=== PATIENT | male | born 1960 | race African-American/Black ===

== ENCOUNTER 2023-05-23 17:29 | Inpatient (IN) | payer MEDICAID ==
[~2023-05-23] VITALS: Ht 185.4 cm; Wt 106.5 kg
[2023-05-23] MEDS ORDERED: ONDANSETRON 4MG 2ML VIAL IV ONE (18:00)
[2023-05-23] MEDS: MORPHINE 4 MG/ML 1ML VIAL IV PRN ×2 (18:20→19:19)
[2023-05-23] MEDS ORDERED: ISOVUE-370 76% 100ML VIAL As Ordered ONE (18:21)
[2023-05-23 18:23] LABS: BASO % 0.2 % (0.0-1.0); EOS % 0.2 % (0.0-3.0); HEMATOCRIT 34.2 % (42.0-52.0); HEMOGLOBIN 11.8 g/dl (13.5-17.5); MEAN CORPUSCULAR HEMOGLOBIN 32.3 pg (27.0-33.0); MEAN CORPUSCULAR HGB CONC 34.5 g/dl (32.0-36.5); MEAN CORPUSCULAR VOLUME 93.7 fl (80.0-96.0); MONO # 0.6 10^3/uL (0.0-0.8); MONO % 10.1 % (2.0-8.0); NEUTROPHILS # 4.2 10^3/uL (1.5-8.5); PLATELET COUNT, AUTOMATED 240 10^3/uL (150-450); RED BLOOD COUNT 3.65 10^6/uL (4.30-6.10); WHITE BLOOD COUNT 5.9 10^3/uL (4.0-10.0)
[2023-05-23 18:30] LABS: CK-MB VALUE MASS 1.9 NG/ML (<3.6)
[2023-05-23 18:31] LABS: LIPASE 27 U/L (12-53)
[2023-05-23 18:32] LABS: CPK CREATINE PHOSPHOKINASE 350 U/L (46-171); MB/CK RELATIVE INDEX 0.54 (< OR =4)
[2023-05-23 18:33] LABS: ALBUMIN 3.6 G/DL (3.2-5.2); ALKALINE PHOSPHATASE 93 U/L (46-116); ALT/SGPT 33 U/L (7.0-40); AST/SGOT 79 U/L (<34); BILIRUBIN,DIRECT 0.6 MG/DL (<0.4); BILIRUBIN,TOTAL 1.5 MG/DL (0.3-1.2); BLOOD UREA NITROGEN 11 MG/DL (9-23); CALCIUM LEVEL 8.9 MG/DL (8.3-10.6); CARBON DIOXIDE LEVEL 21 MMOL/L (20-31); CHLORIDE LEVEL 103 MMOL/L (98-107); CREATININE FOR GFR 1.09 MG/DL (0.70-1.30); GLOMERULAR FILTRATION RATE > 60.0 (>49); GLUCOSE, FASTING 94 MG/DL (74-106); POTASSIUM SERUM 3.6 MMOL/L (3.5-5.1); SODIUM LEVEL 135 MMOL/L (136-145); TOTAL PROTEIN 8.1 G/DL (5.7-8.2)
[2023-05-23 18:35] LABS: THYROID STIMULATING HORMONE 0.938 uIU/ML (0.55-4.78)
[2023-05-23 18:52] LABS: INR 0.99; PROTHROMBIN TIME 13.3 SECONDS (12.5-14.5)
[2023-05-23 18:53] LABS: PARTIAL THROMBOPLASTIN TIME 26.5 SECONDS (24.8-34.2)
[2023-05-23 19:43] LABS: CK-MB VALUE MASS < 1.0 NG/ML (<3.6)
[2023-05-23 19:46] LABS: CPK CREATINE PHOSPHOKINASE 300 U/L (46-171); MB/CK RELATIVE INDEX 0.33 (< OR =4)
[2023-05-23 20:12] LABS: RSV AMPLIFICATION NEGATIVE (NEGATIVE)
[2023-05-23] MEDS ORDERED: PIPERACILLIN/TAZOBACTAM SOD 3.375 GM in D5W MINI-BAG PLUS 50 ML IV ONE (20:20)
[2023-05-23] MEDS ORDERED: MORPHINE 4 MG/ML 1ML VIAL IV PRN (20:25)
[2023-05-23 21:34] LABS: PROCALCITONIN 0.11 ng/ml
[2023-05-23] MEDS ORDERED: HOME MED LIST COMPLETE! XX SCH (22:10)
[2023-05-23] MEDS: HYDROmorphone HCL 2MG/ML 1ML VIAL IV PRN (22:20)
[2023-05-24] MEDS: LR 1,000 ML IV SCH ×3 (02:45→16:56)
[2023-05-24] MEDS: PIPERACILLIN/TAZOBACTAM SOD 3.375 GM in D5W MINI-BAG PLUS 50 ML IV SCH ×4 (04:18→20:23)
[2023-05-24 05:02] LABS: AMPHETAMINES LEVEL URINE NEGATIVE (NEGATIVE); BARBITURATES URINE NEGATIVE (NEGATIVE); BENZODIAZEPINES URINE NEGATIVE (NEGATIVE); COCAINE METABOLITE URINE NEGATIVE (NEGATIVE); METHADONE URINE NEGATIVE (NEGATIVE); PHENCYCLIDINE URINE NEGATIVE (NEGATIVE)
[2023-05-24 05:03] LABS: CANNABINOIDS URINE POSITIVE (NEGATIVE); OPIATES URINE POSITIVE (NEGATIVE)
[2023-05-24] MEDS: HYDROmorphone HCL 2MG/ML 1ML VIAL IV PRN ×2 (05:43→14:47)
[2023-05-24] MEDS: BIKTARVY (PATIENT'S OWN MED) PO SCH (09:00)
[2023-05-24 11:46] LABS: HEPATITIS B CORE ANTIBODY IGM NEGATIVE (NEGATIVE)
[2023-05-24 11:54] LABS: HEPATITIS C VIRUS ABY INDEX > 11.00 INDEX (<0.8)
[2023-05-24 13:38] VITALS: BP 146/83; TEMP 98.3; O2SAT 100
[2023-05-24] MEDS: HEPARIN SOD (PORCINE) 5000UNITS/ML 1ML VIAL/SYRINGE SQ SCH ×2 (14:46→21:33)
[2023-05-24 16:00] VITALS: BP 136/71; TEMP 98.8; O2SAT 97
[2023-05-24 20:30] VITALS: BP 131/69; TEMP 99.1; O2SAT 99
[2023-05-25] VITALS (9 sets, daily range): BP systolic 120–130; BP diastolic 62–74; TEMP 97.6–98.5; O2SAT 96–98
[2023-05-25] MEDS: HYDROmorphone HCL 2MG/ML 1ML VIAL IV PRN ×2 (02:40→13:09)
[2023-05-25] MEDS: PIPERACILLIN/TAZOBACTAM SOD 3.375 GM in D5W MINI-BAG PLUS 50 ML IV SCH ×2 (02:48→10:06)
[2023-05-25] MEDS: HEPARIN SOD (PORCINE) 5000UNITS/ML 1ML VIAL/SYRINGE SQ SCH ×3 (06:15→13:20)
[2023-05-25] MEDS: LR 1,000 ML IV SCH ×2 (06:15→10:45)
[2023-05-25 07:08] LABS: HEPATITIS A IgG TOTAL Positive (Negative)
[2023-05-25 07:13] LABS: BASO % 0.1 % (0.0-1.0); HEMATOCRIT 33.8 % (42.0-52.0); HEMOGLOBIN 11.4 g/dl (13.5-17.5); LYMPH # 1.1 10^3/uL (1.5-5.0); LYMPH % 13.1 % (24.0-44.0); MEAN CORPUSCULAR HEMOGLOBIN 31.3 pg (27.0-33.0); MEAN CORPUSCULAR HGB CONC 33.7 g/dl (32.0-36.5); MEAN CORPUSCULAR VOLUME 92.9 fl (80.0-96.0); MONO % 11.2 % (2.0-8.0); NEUTROPHILS # 6.5 10^3/uL (1.5-8.5); PLATELET COUNT, AUTOMATED 216 10^3/uL (150-450); RED BLOOD COUNT 3.64 10^6/uL (4.30-6.10); WHITE BLOOD COUNT 8.6 10^3/uL (4.0-10.0)
[2023-05-25 07:39] LABS: ALKALINE PHOSPHATASE 80 U/L (46-116); ALT/SGPT 33 U/L (7.0-40); AST/SGOT 221 U/L (<34); BILIRUBIN,TOTAL 2.1 MG/DL (0.3-1.2); BLOOD UREA NITROGEN 10 MG/DL (9-23); CALCIUM LEVEL 8.6 MG/DL (8.3-10.6); CARBON DIOXIDE LEVEL 26 MMOL/L (20-31); CHLORIDE LEVEL 97 MMOL/L (98-107); CREATININE FOR GFR 1.07 MG/DL (0.70-1.30); GLOMERULAR FILTRATION RATE > 60.0 (>49); GLUCOSE, FASTING 114 MG/DL (74-106); POTASSIUM SERUM 3.5 MMOL/L (3.5-5.1); SODIUM LEVEL 130 MMOL/L (136-145); TOTAL PROTEIN 7.3 G/DL (5.7-8.2)
[2023-05-25] MEDS ORDERED: OXYC1TAB23 PO (10:04)
[2023-05-25] MEDS ORDERED: MOXI1TAB PO (10:06)
[2023-05-25] MEDS: BIKTARVY (PATIENT'S OWN MED) PO SCH (10:06)
[2023-05-25] MEDS ORDERED: Patient Own Medication PO (10:38)
[2023-05-25 12:08] LABS: % CD8 Pos Lymph 72.8 % (12.0-35.5); %CD4 Pos Lymphs 13.2 % (30.8-58.5); ABS Neutophils 7.8 x10E3/uL (1.4-7.0); Abs CD4 Helper 132 /uL (359-1519); Abs CD8 Suppres 728 /uL (109-897); CD4/CD8 Ratio 0.18 (0.92-3.72); Eosinophils 0 % (Not Estab.); HCT 36.2 % (37.5-51.0); HGB 12.5 g/dL (13.0-17.7); Immature Grans 0 % (Not Estab.); Lymphocytes 10 % (Not Estab.); MCH 31.9 pg (26.6-33.0); MCHC 34.5 g/dL (31.5-35.7); MCV 92 fL (79-97); Monocytes 10 % (Not Estab.); Neutrophils 80 % (Not Estab.); Platelets 241 x10E3/uL (150-450); RBC 3.92 x10E6/uL (4.14-5.80); RDW 12.5 % (11.6-15.4); WBC 9.8 x10E3/uL (3.4-10.8)
== END 2023-05-25 15:22 | disposition home or self-care (01) | DRG 892 ==
LOC: M ED 17:29 → M ED INP 22:13 → ENRESERV 05-24 12:24 → M PCU 05-24 14:25
PROVIDERS: ADMIT Internal Medicine; ATTEND Internal Medicine
DX: R16.0 Hepatomegaly, not elsewhere classified (principal); B20 Human immunodeficiency virus [HIV] disease; K81.0 Acute cholecystitis; K82.1 Hydrops of gallbladder; K74.60 Unspecified cirrhosis of liver; D13.4 Benign neoplasm of liver; D21.3 Benign neoplasm of connective and other soft tissue of thorax; B19.20 Unspecified viral hepatitis C without hepatic coma; M54.9 Dorsalgia, unspecified; R07.89 Other chest pain; R10.13 Epigastric pain; R10.84 Generalized abdominal pain; Z20.822 Contact with and (suspected) exposure to COVID-19